=== PATIENT | male | born 1975 | race African-American/Black ===

== ENCOUNTER 2023-08-19 07:24 | Emergency (ER) | payer MEDICAID ==
[~2023-08-19] VITALS: Ht 177.8 cm; Wt 77.0 kg
[2023-08-19 07:28] VITALS: O2SAT 100
[2023-08-19] MEDS: ONDANSETRON HCL 4MG/2ML INJ IV STA (08:32)
[2023-08-19] MEDS: MORPHINE SULFATE 4 MG/ML INJ (FOR IV/IM USE) IV STA ×2 (08:33→12:34)
[2023-08-19] MEDS: SODIUM CHLORIDE 0.9% 1,000 ML IV ONE (08:34)
[2023-08-19 08:36] LABS: BASOPHILS % 0.9 % (0.0-2.0); DIFFERENTIAL COMMENT 0; EOSINOPHILS % 3.7 % (0.0-5.0); HEMATOCRIT. 28.5 % (42.0-52.0); HEMOGLOBIN. 9.3 g/dL (14.0-18.0); LYMPHOCYTES % 17.6 % (20.0-50.0); MEAN CORPUSCULAR HEMOGLOBIN 25.8 pg (28.0-32.0); MEAN CORPUSCULAR HGB CONC 32.8 g/dL (31.0-37.0); MEAN CORPUSCULAR VOLUME 78.5 fL (80.0-94.0); MEAN PLATELET VOLUME 8.2 fl (7.4-10.4); MONOCYTES % 10.5 % (2.0-8.0); NEUTROPHILS % 67.3 % (40.0-76.0); PLATELET 680 x1000/uL (130-400); RED BLOOD CELL COUNT 3.62 mill/uL (4.7-6.1); RED CELL DISTRIBUTION WIDTH 16.7 % (11.6-14.6); WHITE BLOOD COUNT 9.6 x1000/uL (4.5-11.0)
[2023-08-19 08:38] LABS: CHLORIDE 103 mEq/L (98-107); POTASSIUM 3.5 mEq/L (3.5-5.1); SODIUM 136 mEq/L (136-145)
[2023-08-19 08:39] LABS: CALCIUM 11.1 mg/dL (8.7-10.4); CARBON DIOXIDE 23 mEq/L (21-32)
[2023-08-19 08:44] LABS: CREATININE 0.6 mg/dL (0.6-1.3); GLUCOSE 102 mg/dL (70-105); UREA NITROGEN BLOOD 11 mg/dL (9-23)
[2023-08-19 08:46] LABS: ALANINE AMINOTRANSFERASE 11 IU/L (10-49); ALBUMIN 4.2 g/dL (3.2-4.8); ASPARTATE AMINOTRANSFERASE 24 IU/L (<34); BILIRUBIN DIRECT 0.2 mg/dL (<=3.0); BILIRUBIN TOTAL 0.4 mg/dL (0.1-1.0); INR 1.2; PROTEIN TOTAL 8.4 g/dL (6.0-8.3); TROPONIN I HIGH SENSITIVITY < 4 ng/L (3.0-53)
[2023-08-19] MEDS ORDERED: OXYC10TA48 MT (09:46)
[2023-08-19 11:14] LABS: TROPONIN I HIGH SENSITIVITY < 4 ng/L (3.0-53)
[2023-08-19] MEDS ORDERED: OXYCODONE HCL/ACETAMINOPHEN 5/325MG TABLET PO ONE (12:00)
[2023-08-19 12:35] VITALS: BP 108/77; PULSE 90; RESP 16; TEMP 98.6
== END 2023-08-19 13:14 | disposition home or self-care (01) ==
LOC: ER 08:24
DX: R07.89 Other chest pain (principal); C15.9 Malignant neoplasm of esophagus, unspecified; J45.909 Unspecified asthma, uncomplicated; I10 Essential (primary) hypertension; Z98.890 Other specified postprocedural states
CPT/HCPCS: 80076; 80048; 83690; 85025; 85610; 84484; 36415; 71045; 93005; 96361; 96374; 96375; 96376; 99285; J2405; J2270; J7030; Z7610 ×3